=== PATIENT | female | born 1950 | race Caucasian/White ===

== ENCOUNTER 2025-06-04 09:43 | Outpatient (AMB) | payer OTHER, SELFPAY ==
--- NOTE | 2025-06-04 10:03 | A.OFFVIS_ITS ---
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: No Accompanied by: Self / Same As Patient Allergies codeine Adverse Reaction (Severe, Verified 06/04/25 10:04) Anaphylaxis Medication List - Last Reconciled 06/04/25 by OLVIN Olson amlodipine 2.5 mg PO DAILY cholecalciferol (vitamin D3) 1,250 mcg PO QWEEK cyanocobalamin (vitamin B-12) 1,000 mcg PO DAILY escitalopram oxalate 10 mg PO DAILY hydroxyzine HCl 25 mg PO QID PRN naproxen sodium (Aleve) 220 mg PO BID PRN rosuvastatin 5 mg PO DAILY sennosides-docusate sodium 8.6-50 mg (Senexon-S) 2 tabs PO QPM sumatriptan succinate 100 mg PO Q2H PRN 30 days HPI Comments Details: 71-yr-old female presents for f/u visit. She was last seen by Dr Miles in 2019. 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 [facility] f[facility]b [facility]. She is being referred to Dr Violet Hernandez plastic surgery. She also had a cyst at the crown of her head, which had previously been drained but recurred, and then self ruptured while she was showering last week. The residual lesion is healing well. She denies any interval episodes of chest pain, palpitations, shortness of breath. Her BP has continued to be normotensive. She just started statin for mildly elevated CHO. Otherwise, she denies any h/o CV dz. The [employer]HI PREVENT Online Calculator: Estimated 10-year risk of CVD 15.2%, indicates intermediate cardiovascular risk. Rarely has a severe, excruciating pain from the right lower skul base, and radiates up the back of the head in the KAY distribution. It lasts a second, and then recurrs once, and then stops. Not a/w dizziness, lightheadedness. No clear triggers. Notes h/o chronic cervical arthritis. This started over the summer, and since has had 4-5 attacks, which have always occurred in the exact same spot and with the exact same pattern. She reports she is having less migraine attacks, which she attributes to eating better, exercising more, and losing weight. now 1-2 migraine days per week. She uses Sumatriptan 100mg 1/2 tab prn. If migraine not as intense, may try Excedrin. She uses OTC Advil prn for neck/back pain. Baseline migraine headaches: * Her more frequent migraine: starts in the left skull base and moves up into the left frontal region, photophobia, phonophobia, nausea, activity intolerance. w/o treatment lasts 1-2 days. * Her less frequent migraine: left eye and left akira-orbital pain, this is more intense a/w photophobia, phonophobia, nausea. This occurs less frequently. Does not last as long. This is sumatriptan responsive. [facility] Medical History (Updated 06/04/25 @ 16:05 by OLVIN Olson) Spinal stenosis Depression Arthritis Cervicalgia Surgical History H/O: hysterectomy History of cholecystectomy Previous back surgery Social History Alcohol intake: current Alcohol intake frequency: holidays/special occasions only Patient Tobacco Use Status: Never used Tobacco Review of Systems Const All systems reviewed & are unremarkable except as noted in HPI and below Physical Exam Vital Signs: Last Vital Signs Pulse 62 06/04/25 10:07 BP 122/80 06/04/25 10:07 Pulse Ox 94 06/04/25 10:07 Oxygen Delivery Method Room Air 06/04/25 10:07 BMI result Body Mass Index 26.3 Const General: cooperative and no acute distress Orientation/consciousness: patient oriented x3 HEENT Head: Yes normocephalic Resp Effort & Inspection: normal respiratory effort and able to speak in complete sentences Neuro Other: Frost effect: Small intact pink lesion without drainage. Left nasolabial region bandage General: patient oriented x3, gait normal and CN's II-XI intact bilaterally Cognition (Neuro): normal cognition Motor exam (neuro): 5/5 motor strength present throughout Psych Appearance: grossly normal Mental Status: mental status grossly normal Speech and movement: Normal speech and movement present Affect: normal affect Attitude: cooperative Thought process: Normal thought process present Thought content: Normal thought content present Insight: Good insight present (Psych) Judgement: Good judgement present (Psych) Results Reviewed Results Reviewed: Lab results retreat from [facility] portal: 05/06/25 RBC 4.62 Hgb 12.9 Hct 40.1 MCV 87 MCH 27.9 MCHC 32.2 Platelet Count 229 RDW 14.1 Abs. Neut 2.6 Abs. Lymph 2.2 Abs. [place] 0.4 Abs. Eo 0.2 Abs. Baso 0.1 Neut % 46 Lymph % 40 [place] % 8 Eos % 4 Baso % 2 Imm Gran 0 Abs. Imm Gran *0.0 05/06/25 Sodium 140 Potassium 3.7 Chloride 102 Bicarbonate Level 21 Anion Gap 17.0 Glucose Level 86 BUN 12 Creatinine-Blood 0.85 Estimated GFR Creatinine 72 Calcium 9.7 Protein, Total 7.0 Albumin 4.3 Alkaline Phosphatase 99 AST (SGOT) 19 w ALT (SGPT) *10 Bilirubin, Total 0.4 Vitamin B12 Level ?*>2000 Globulin Total 2.7 BUN/Creat Ratio 14 Cholesterol ?259 Triglycerides ?171 HDL Cholesterol 64 Non HDL Cholesterol ?*195 VLDL Cholesterol Calc 31 LDL Chol Calc (NIH) ?164 TSH *1.320 25 OH-Vitamin D Level *67.3 Assessment & Plan Assessment & Plan (1) Migraine without aura: Code(s): G43.009 - Migraine without aura, not intractable, without status migrainosus Category: Medical Qualifiers: Status migrainosus presence: without status migrainosus Intractability: not intractable Qualified Code(s): G43.009 - Migraine without aura, not intractable, without status migrainosus (2) Occipital neuralgia of right side: Code(s): M54.81 - Occipital neuralgia Category: Medical (3) White matter disease: Comment: mild-moderate white matter abnormality c/w small vessel disease (brain MRI 2019) Code(s): R90.82 - White matter disease, unspecified Category: Medical Plan As patient is over the age of 70 and on chronic as-needed Triptan therapy, we reviewed her interval medical history, interval lab work results, and her cardiovascular risk factors. She is an intermediate risk for cardiovascular disease, which does not preclude her from continuing to use sumatriptan at this time. However, she is advised to notify us if she develops any new cardiovascular symptoms or diagnoses, such as AFib, uncontrolled HTN, chest pain, angina, palpitations. For migraine: Trial Sumatriptan 100mg tab, 1/2 - 1 tab (50-100mg) at onset of headache, may repeat in 2 hours. Max of 2 tabs (200mg) per 24 hours. * May take sumatriptan with OTC Tylenol 650-1,000mg every 4-6 hours and/or Advil (liquid gels) 400 to 600mg every 4 to 6 hours as needed. For right-sided occipital headache c/w occipital neuralgia: * Discussed trying occipital nerve block, however patient does not think this is needed at this time * If frequency increases, consider follow-up cervical imaging and ON block She is advised to follow-up in 12 months or sooner prn. Coding Level of Care Code Est Pt Level 4 (84222) Diagnoses Migraine without aura and without status migrainosus, not intractable G43.009 Status migrainosus presence: without status migrainosus Intractability: not intractable Occipital neuralgia of right side M54.81 White matter disease R90.82 Time Spent (min) 30
[2025-06-04 10:07] VITALS: BP 122/80; PULSE 62; O2SAT 94; BMI 26.3
== END 2025-06-04 11:16 | disposition home or self-care (01) ==
LOC: HO.HSMS 09:43
PROVIDERS: PCP Internal Medicine; Visit Provider Nurse Practitioner Family
DX: G43.009 Migraine without aura, not intractable, without status migrainosus (principal); M54.81 Occipital neuralgia; R90.82 White matter disease, unspecified
CPT/HCPCS: 99214